=== PATIENT | female | born 1960 | race Two or more races ===

== ENCOUNTER 2023-04-29 20:11 | Emergency (ER) | payer OTHER ==
[~2023-04-29] VITALS: Ht 177.8 cm; Wt 109.1 kg
[2023-04-29] MEDS ORDERED: AMLO-258 PO (20:19)
[2023-04-29] MEDS: ACETAMINOPHEN/CODEINE 300-30 MG TABLET PO ONE (22:36)
[2023-04-29] MEDS: BACITRACIN 0.9 GM PACKET OINTMENT TP ONE (22:36)
[2023-04-29] MEDS: IBUPROFEN 600 MG TABLET PO ONE (22:36)
[2023-04-29] MEDS ORDERED: IBUP-1554 PO (23:06)
[2023-04-29] MEDS ORDERED: HYDR-4723 PO (23:06)
[2023-04-29 23:30] VITALS: BP 141/85; PULSE 89; RESP 16; TEMP 97.9
== END 2023-04-30 04:14 | disposition home or self-care (01) ==
LOC: EMS 20:25
DX: S63.502A Unspecified sprain of left wrist, initial encounter (principal); S83.91XA Sprain of unspecified site of right knee, initial encounter; S00.83XA Contusion of other part of head, initial encounter; I10 Essential (primary) hypertension; W19.XXXA Unspecified fall, initial encounter; Y93.89 Activity, other specified; Y92.89 Other specified places as the place of occurrence of the external cause; Y99.8 Other external cause status
CPT/HCPCS: 99284